=== PATIENT | female | born 1975 | race Caucasian/White ===

== ENCOUNTER 2019-09-22 10:00 | Inpatient (IN) | payer MEDICAID ==
[~2019-09-22] VITALS: Ht 160 cm; Wt 108.9 kg
--- NOTE | 2019-09-22 10:13 | NUR ---
MD CORTEZ AT BEDSIDE FOR MSE
--- NOTE | 2019-09-22 10:20 | NUR ---
PT PRESENTS TO ED WITH C/O WOUND TO INTERIOR L CALF. PT STATES THAT SHE HAS HAD THIS WOUND FOR 2 MONTHS AND SEEN HER PCP AND A VASCULAR SURGEON FOR THIS. PT STATES THEY MOSTLY HAVE DONE NOTHING FOR IT EXCEPT ULTRASOUND AND MONITORING. PT HAS OPEN WOUND ABOVE L ANKLE WITH YELLOW DRAINAGE AND HOT TO THE TOUCH CIRCUMFRENTIAL TO THE WOUND. WOUND APPROX 6X6CM , NO DEPTH VISIBLE, IN CIRCULAR SHAPE. PT APPEARS DISTRESSED ABOUT WOUND. PT ABLE TO AMBULATE WITH STEADY GAIT PT DENIES FEVER/ FLU LIKE SXS, JUST REPORTS PAIN. PT AXO X 4. PT SP[EAKING IN CLEAR AND FULL SENTENCES. MD CORTEZ AT BEDSIDE FOR TRANSLATION. AWAITING NEW ORDERS AT THIS TIME
--- NOTE | 2019-09-22 10:32 | NUR ---
XRAY AT BEDSIDE.
--- NOTE | 2019-09-22 10:32 | NUR ---
LAB AT BEDSIDE.
--- NOTE | 2019-09-22 10:32 | NUR ---
LAB AT BEDSIDE. IV ABX NOT STARTED UNTIL BLOOD CULTURE COLLECTED
[2019-09-22 10:54] LABS: CALCIUM 8.5 mg/dL (8.5-10.1); CARBON DIOXIDE 28.6 mmol/L (21-32); CHLORIDE SERUM 104 mmol/L (98-107); CREATININE SERUM 0.6 mg/dL (0.6-1.0); GFR1 > 60 mL/min; GLUCOSE SERUM 94 mg/dL (74-106); POTASSIUM SERUM 3.8 mmol/L (3.5-5.1); SODIUM SERUM 140 mmol/L (136-145)
[2019-09-22 10:58] LABS: ALBUMIN 3.7 g/dL (3.4-5.0); ALKALINE PHOSPHATASE 84 U/L (46-116); ALT/SGPT 96 U/L (14-59); AST/SGOT 39 U/L (15-37); BILIRUBIN TOTAL 0.28 mg/dL (0.20-1.00); C REACTIVE PROTEIN 1.9 mg/dL (<=0.9); CHOLESTEROL 151 mg/dL (<200); TOTAL PROTEIN, SERUM 7.4 g/dL (6.4-8.2); TRIGLYCERIDES 97 mg/dL (<150)
[2019-09-22 11:01] LABS: CHOLESTEROL/HDL RATIO 4.6; HDL CHOLESTEROL 33 mg/dL (40-60)
--- NOTE | 2019-09-22 11:09 | NUR ---
ULTRASOUND AT BEDSIDE
[2019-09-22 11:18] LABS: BASOPHIL % 0.4 % (0-2); PLATELET COUNT 211 x10^3mcL (130-400)
[2019-09-22 11:48] LABS: ERYTHROCYTE SED RATE 21 mm/hr (0-20)
--- NOTE | 2019-09-22 13:38 | NUR ---
REPORT GIVEN TO SUHAIL MORALES. ALL QUESTIONS AND CONCERNS ADDRESSED AT THIS TIME
[2019-09-22 14:21] VITALS: BP 119/66
--- NOTE | 2019-09-22 14:24 | NUR ---
RECEIVED PT FROM ED VIA NESS. ORIENTED PT TO ROOM AND SURROUNDINGS. IV NOTED TO RFA PATENT AND INTACT. INSTRUCTED PT ON THE USE OF CALL LIGHT FOR ASSISTANCE. ENDORSED PT TO PRIMARY NURSE CARMEN
[2019-09-22 17:49] VITALS: BP 120/62
--- NOTE | 2019-09-22 19:32 | NUR ---
PT RECIEVED AAO REG RESP NO SOB V/S STABLE,PT WITH FAMILY AT THE BEDSIDE,IV INFUSING WELL WITH THE SITE PATENT AND INTACT DRESSING TO THE LT KNEE INTACT PULSES ARE PALPABLE IN ALL EXTRE,BED IN THE LOW POSITION AND LOCKED,PT BEING ENCOURAGE TO AMBULATE,CALL LIGHT EASY REACHED AND WILL CONTINUE TO MONITOR.
[2019-09-22 21:56] VITALS: BP 111/61
[2019-09-22 22:11] VITALS: Ht 160 cm; Wt 108.9 kg
[2019-09-23 06:10] VITALS: BP 110/61
[2019-09-23 06:21] LABS: BASOPHIL % 0.6 % (0-2); PLATELET COUNT 182 x10^3mcL (130-400); RED CELL DISTRIBUTION WIDTH 13.1 % (11.5-14.5)
--- NOTE | 2019-09-23 06:41 | NUR ---
PT HAD A RESTING NIGHT NO CHANGE AT THIS TIME AND WILL CONTINUE TO MONITOR.
--- NOTE | 2019-09-23 07:30 | NUR ---
PT IS AAOX4. NORMSL S1S2 NOTED. RESP EVEN AND UNLABORED. NO DISTRESS NOTED. PT HAS LLE TRACE EDEMA WITH WOUND AND CELLULITUS COVERED WITH CDI 4X4s AND KERLIX. ELEVATED ON PILLOW. IVF RUNNING TO RFA. SITE WNL. NO S/S OF INFECTION OR INFILTRATION. PT DENIES PAIN AT THIS TIME. CALL LIGHT WITHIN REACH. BED IN LOWEST POSITION.
--- NOTE | 2019-09-23 08:15 | NUR ---
MARK NAGY NP MET WITH PT AND DISCUSSED POC. REPORTED TO TIERNEY THAT PT IS HAS VOMITED 300CC OF CLEAR GREEN FLUID. MARK STATED PT WILL HAVE A SCAN TO R/O OSTEOMYELITIS AND A MEDICATION TO DECREASE ACID IN THE PT STOMACH WILL BE PRESCRIBED. PT AGREED WITH POC.
[2019-09-23 08:19] LABS: CALCIUM 8.1 mg/dL (8.5-10.1); CARBON DIOXIDE 29.2 mmol/L (21-32); CHLORIDE SERUM 105 mmol/L (98-107); CREATININE SERUM 0.5 mg/dL (0.6-1.0); GFR1 > 60 mL/min; GLUCOSE SERUM 104 mg/dL (74-106); POTASSIUM SERUM 4.2 mmol/L (3.5-5.1); SODIUM SERUM 141 mmol/L (136-145)
[2019-09-23 09:01] VITALS: BP 105/56
--- NOTE | 2019-09-23 09:15 | NUR ---
SCHEDULED MEDS GIVEN AND TOLERATED WELL. LLE ELEVATED ON PILLOW. RESP EVEN AND UNLABORED. NO DISTRESS NOTED. PT DENIES PAIN AT THIS TIME. CALL LIGHT WITHIN REACH.
--- NOTE | 2019-09-23 12:54 | NUR ---
NORCO 5/325MG PO GIVEN FOR LLE PAIN. LLE ELEVATED. PT REPOSTIONED FOR COMFORT. EXTRA FLUIDS GIVEN AND ENCOURAGED. SCHEDULED MED GIVEN AND TOLERATED WELL. RESP EVEN AND UNLABORED. NO DISTRESS NOTED. CALL LIGHT WITHIN REACH.
--- NOTE | 2019-09-23 15:42 | NUR ---
RECEIVED ORDER FOR WOUND CARE FROM MARK NAGY RN. CLEANSE WOUND WITH SOAP AND N/S, PAT DRY, APPLY ADAPTIC AND KERLIX. ELEVATE EXTREMITY ON PILLOW. ORDERS NOTED AND CARRIED OUT. PT TOLERATED PROCEDURE WELL. CALL LIGHT WITHIN REACH. BED IN LOWEST POSTION.
--- NOTE | 2019-09-23 15:48 | NUR ---
REPORTED TO DEEJAY PHARMACIST THAT PT'S VANCO TROUGH IS 4.0. DEEJAY STATED HOLD VANCO AND HE WILL REMIX IT.
[2019-09-23 16:01] VITALS: BP 112/55
--- NOTE | 2019-09-23 18:12 | NUR ---
NORCO PO GIVEN FOR LLE PULSING PAIN 04/17. EXTRA FLUIDS GIVEN AND ENCOURAGED. SCHEDULED MED GIVEN AND TOLERATED WELL. PT REPOSTIONED FOR COMFORT. CALL LIGHT WITHIN REACH. FAMILY AT BEDSIDE.
--- NOTE | 2019-09-23 18:25 | NUR ---
PT IS AAOX4. RESP EVEN AND UNLABORED. IVF RUNNING TO RFA, SITE WNL. NO S/S OF INFECTION OR INFILTRATION. PT HAS LLE WOUND REINFORCED WITH DRESSING AND ELEVATED ON PILLOW. PT DENIES PAIN AT THIS TIME. WILL ENDORSE PT TO DANIEL MORALES.
--- NOTE | 2019-09-23 19:20 | NUR ---
RECEIVED REPORT FROM DAY SHIFT NURSE, SHELLY MORALES. PT IS AAOX4. NIGERIAN SPEAKING. DENIES CASTLE. DENIES CP. PULSES ARE PALPABLE, SWELLING NOTED TO LLE. ELEVATED ON PILLOW. BREATHING IS EVEN AND UNLABORED ON RA. LUNG SOUNDS CTA. NO SIGNS OF RESP. DISTRESS. ABD IS ROUND AND SOFT, BS ACTIVE IN ALL 4Q. VOIDS FREELY. AMBULATORY. LLE WOUND, ADAPTIC DRSG APPLIED - CDI. PT IS C/O 8/10 PAIN, PAIN MEDICATION IS NOT DUE YET. OFFERED COLD COMPRESSES, BUT PT REFUSED AND STATED SHE WILL WAIT FOR THE PAIN MEDICATION. RFA RUNNING NS AT 50 CC/HR. FAMILY AT BEDSIDE. BED IN LOWEST POSITION. CALL LIGHT WITHIN REACH. WILL CONTINUE TO MONITOR.
[2019-09-23 20:35] VITALS: BP 116/60
--- NOTE | 2019-09-23 21:00 | NUR ---
PT IS RESTING COMFORTABLY IN BED, WATCHING TV. FAMILY AT BEDSIDE. PT DENIES PAIN AT THIS MOMENT, STATES SHE IT FEELS BETTER. BREATHING IS EVEN AND UNLABORED ON RA. NO SIGNS OF RESP. DISTRESS. BED IN LOWEST POSITION. CALL LIGHT WITHIN REACH. WILL CONTINUE TO MONITOR.
--- NOTE | 2019-09-24 00:05 | NUR ---
ROUTINE MEDICATIONS GIVEN AND TOLERATED WELL. NO ACUTE DISTRESS NOTED. PT IS C/O 8/10 PAIN ON LEFT LOWER LEG. MEDICATED WITH NORCO PRN PER JAN ORDER. WILL REASSESS FOR EFFECTIVENESS. BREATHING IS EVEN AND UNLABORED ON RA. NO SIGNS OF RESP. DISTRESS. BED IN LOWEST POSITION. CALL LIGHT WITHIN REACH. SIDE RAILS UP X2. WILL CONTINUE TO MONITOR.
--- NOTE | 2019-09-24 02:15 | NUR ---
PT IS RESTING COMFORTABLY IN BED WITH EYES CLOSED, NO ACUTE DISTRESS NOTED. DRSG CDI - NO DRAINAGE NOTED. BED IN LOWEST POSITION. CALL LIGHT WITHIN REACH. WILL CONTINUE TO MONITOR.
--- NOTE | 2019-09-24 04:53 | NUR ---
PT SLEPT IN LONG INTERVALS THROUGHOUT THE NIGHT AND COMPLIED WITH NURSING CARE WITH NO ACUTE EVENTS OCCURRING DURING SHIFT. COMFORT AND SAFETY MEASURES MAINTAINED. PAIN MANAGEMENT MAINTAINED. ALL NEEDS ASSESSED AND ATTENDED TO. WILL CONTINUE TO MONITOR AND ENDORSE CARE TO DAY SHIFT NURSE.
[2019-09-24 05:49] VITALS: BP 119/55
--- NOTE | 2019-09-24 07:30 | NUR ---
PT IS AAOX4. LUNG SOUNDS CTA. NORMAL S1S2 NOTED. PT DENIES N/V/D AND CONSTIPATION. PT HAS WOUND WITH TRACE EDEMA TO LLE, COVERED WITH ADAPTIC DRESSING AND KERLIX. CDI. ELEVATED ON PILLOW. IVF RUNNING TO RFA, SITE WNL. NO S/S OF INFECTION OR INFILTRATION. CALL LIGHT WITHIN REACH. BED IN LOWEST POSITION.
[2019-09-24 08:50] VITALS: BP 117/57
--- NOTE | 2019-09-24 09:11 | NUR ---
Nutrition Note-Initial screening Received wound care consult on 09/22/19. Further chart review noted with no P/U at this time, and pt. does not meet high risk category. Good appetite and PO intake noted with documented PO 90-100% x 2 meals. Will be seen as moderate risk with initial assessment due 09/25-09/27. Consult RD PRN if condition has changed.
--- NOTE | 2019-09-24 09:16 | NUR ---
SCHEDULED MEDS GIVEN AND TOLERATED WELL. PT LLE ELEVATED ON PILLOW. PT DENIES PAIN AND DISCOMFORT. RESP EVEN AND UNLABORED. NO DISTRESS NOTED. CALL LIGHT WITHIN REACH. PT GIVEN TEACHING ON ZINC AND VIT C FOR WOUND HEALING. PT VERBALIZED UNDERSTANDING.
--- NOTE | 2019-09-24 11:44 | NUR ---
NORCO 5/325MG PO GIVEN FOR LLE PAIN 04/17. EXTRA FLUIDS GIVEN AND ENCOURAGED. PT EDUCATED TO INCREASE ACTIVITY. SCHEDULED MED GIVEN AND TOLERATED WELL. PT STATED SHE WILL SIT UP IN CHAIR FOR LUNCH. RESP EVEN AND UNLABORED. NO DISTRESS NOTED. CALL LIGHT WITHIN REACH.
[2019-09-24 15:09] LABS: BASOPHIL % 0.5 % (0-2); CALCIUM 8.3 mg/dL (8.5-10.1); CARBON DIOXIDE 28.8 mmol/L (21-32); CHLORIDE SERUM 105 mmol/L (98-107); CREATININE SERUM 0.6 mg/dL (0.6-1.0); GFR1 > 60 mL/min; GLUCOSE SERUM 119 mg/dL (74-106); PLATELET COUNT 176 x10^3mcL (130-400); POTASSIUM SERUM 3.6 mmol/L (3.5-5.1); RED CELL DISTRIBUTION WIDTH 13.3 % (11.5-14.5); SODIUM SERUM 140 mmol/L (136-145)
--- NOTE | 2019-09-24 15:25 | NUR ---
TORADOL IVP GIVEN FOR THROBBING LLE PAIN 04/17. PT ASSISTED WITH BED BATH AND GOWN CHANGE. DRESSING REMOVED FROM LLE, WOUND CLEANSED WITH N/S, PATTED DRY, AND ADAPTIC 4X4 AND KERLIX APPLIED. PT TOLERATED PROCEDURE WELL. RESP EVEN AND UNLABORED. NO DISTRESS NOTED. LLE ELEVATED ON PILLOW. BED IN LOWEST POSTION. CALL LIGHT WITHIN REACH.
--- NOTE | 2019-09-24 15:34 | NUR ---
REPORTED TO DEEJAY PHARMACIST THAT VANCO TROUGH IS 12.7. DEEJAY STATED, PLEASE CONTINUE WITH PRESENT VANCO DOSING.
--- NOTE | 2019-09-24 15:45 | NUR ---
SCHEDULED MED GIVEN AND TOLERATED WELL. PT STATES LLE PAIN HAS IMPROVED. RESP EVEN AND UNLABORED. LLE ELEVATED ON PILLOW. CALL LIGHT WITHIN REACH. FAMILY AT BEDSIDE VISITING.
[2019-09-24 16:50] VITALS: BP 127/62
--- NOTE | 2019-09-24 17:53 | NUR ---
NORCO PO GIVEN FOR THROBBING LLE PAIN. EXTRA FLUIDS GIVEN. PT LLE ELEVATED ON PILLOW. PT REPOSITIONED FOR COMFORT. SCHEDULED MED GIVEN. CALL LIGHT WITHIN REACH.
--- NOTE | 2019-09-24 18:41 | NUR ---
PT IS AAOX4. RESP EVEN AND UNLABORED. PT DENIES LLE PAIN AT THIS TIME. LLE ELEVATED ON PILLOW. RFA IV CATH FELL OUT. SITE WNL. COVERED WITH GAUZE AND BANDAID. NEW IV CATH 22G STARTED ON 3RD ATTEMPT TO LW. SITE WNL. COVERED WITH CDI OCCLUSIVE DRESSING. PT TOLERATED PROCEDURE WELL. IVF NOW RUNNING TO IV CATH IN . NO S/S OF INFILTRATION NOTED. PT HAS LLE WOUND COVERED WITH CDI DRESSING, NO S/S OF DRAINAGE NOTED. BED IN LOWEST POSITION. CALL LIGHT WITHIN REACH. WILL ENDORSE ALL CARE TO NOC RN.
--- NOTE | 2019-09-24 19:10 | NUR ---
RECEIVED PT SITTING UP IN BED EATING DINNER, NO ACUTE DISTRESS OBSERVED, DENIES PAIN OR DISCOMFORT. DARK PURPLE AND YELLOW DISCOLORATION TO LLE WITH DRESSING IN PLACE, CDI. LLE ELEVATED ONTO PILLOW. MILD WEAKNESS TO LLE, AMBULATORY AND ABLE TO REPOSITION SELF IN BED. AA/OX4, MED-SURG, NO TELE, NO CP. PULSES PALPABLE AND EQUAL THROUGHOUT, SWELLING TO LLE. BREATHING ON RA, EVEN AND UNLABORED, NO SOB OR DYSPNEA OBSERVED. ABD ROUND AND SOFT, NONTENDER, NO N/V/D. VOIDS URINE FREELY WITH BRP. IV TO LH IN PLACE, DRY, PATENT, INTACT, AND INFUSING IVF WELL, NO S&S PHLEBITIS OR INFILTRATION NOTED. COMFORT AND SAFETY MEASURES IN PLACE. ALL NEEDS ASSESSED AND ATTENDED TO. CALL LIGHT WITHIN REACH. WILL CONTINUE TO MONITOR
[2019-09-24 20:45] VITALS: BP 117/62
--- NOTE | 2019-09-25 05:12 | NUR ---
NO SIGNIFICANT CHANGES TO REPORT, PT COMPLIED WITH NURSING CARE THROUGHOUT THE SHIFT WITH NO ACUTE EVENTS. NO ACUTE DISTRESS OBSERVED AT THIS TIME, PT LAYING IN BED, BREATHING EVEN AND UNLABORED. COMFORT AND SAFETY MEASURES MAINTAINED. ALL NEEDS ASSESSED AND ATTENDED TO. CALL LIGHT WITHIN REACH. WILL CONTINUE TO MONITOR AND ENDORSE CARE TO DAY SHIFT NURSE
[2019-09-25 05:39] VITALS: BP 119/64
[2019-09-25 06:22] LABS: CALCIUM 8.3 mg/dL (8.5-10.1); CARBON DIOXIDE 27.9 mmol/L (21-32); CHLORIDE SERUM 106 mmol/L (98-107); CREATININE SERUM 0.6 mg/dL (0.6-1.0); GFR1 > 60 mL/min; GLUCOSE SERUM 81 mg/dL (74-106); POTASSIUM SERUM 3.8 mmol/L (3.5-5.1); SODIUM SERUM 141 mmol/L (136-145)
[2019-09-25 06:52] LABS: BASOPHIL % 0.6 % (0-2); PLATELET COUNT 170 x10^3mcL (130-400); RED CELL DISTRIBUTION WIDTH 13.3 % (11.5-14.5)
--- NOTE | 2019-09-25 08:00 | NUR ---
Report received from shift production supervisor RN. Patient found in bed. Alert and oriented x 4. Georgian speaking. No signs of distress indicated. Respiration even and unlabored. No signs of pain. Patient has LLE Cellulitis. Minimal drainage indicated. Will continue to monitor. Call light within reach.
[2019-09-25 08:42] VITALS: BP 123/65
[2019-09-25] MEDS ORDERED: CLEOCIN HCL150 MG PO (09:16)
[2019-09-25 11:27] VITALS: BP 130/65
--- NOTE | 2019-09-25 13:30 | NUR ---
PATIENT AWARE OF BEING DISCHARGED. DISCHARGE PAPERWORK PREPARED AND GIVEN TO PATIENT FOR SIGNATURES. WOUND PHOTOGRAPH OF LLE ANKLE CELLULITUS TAKEN FOR PATIENT. PATIENT ABLE TO AMBULATE WITH ASSIST. IV REMOVED FROM PATIENT. NO S/S OF BLEEDING, DRAINAGE, OR INFILTRATION NOTED. BROTHER AT BEDSIDE TO TAKE PATIENT HOME. WHEELCHAIR USED TO TAKE PATIENT TO CAR. NO SIGNS OF DISTRESS INDICATED.
--- NOTE | 2019-09-25 16:26 | NUR ---
Discount pharmacy card and list to low cost medical clinics given to patient by Kane Landin.
--- NOTE | 2019-09-26 08:12 | NUR ---
WOUND CARED CONSULT NOT DONE, PT. DISCHARGED.
== END 2019-09-25 13:45 | disposition home or self-care (01) | DRG 384 ==
LOC: ED 10:00 → MU 13:00
PROVIDERS: Specialist; ADMIT Internal Medicine
DX: S81.802S Unspecified open wound, left lower leg, sequela (principal); L03.116 Cellulitis of left lower limb; I83.92 Asymptomatic varicose veins of left lower extremity; E66.9 Obesity, unspecified; Z90.49 Acquired absence of other specified parts of digestive tract; X58.XXXS Exposure to other specified factors, sequela
CPT/HCPCS: 90658; G0378; J1885; J2543; J3370; J3490; J7030; Q0092

== ENCOUNTER 2019-11-23 08:45 | Emergency (ER) | payer OTHER, MEDICAID ==
[~2019-11-23] VITALS: Ht 167.6 cm; Wt 117.0 kg
[~2019-11-23 08:45] MED LIST: CLEOCIN HCL150 MG PO
[2019-11-23 08:49] VITALS: Ht 167.6 cm; Wt 117.0 kg
[2019-11-23 11:44] VITALS: BP 126/69
== END 2019-11-23 11:44 | disposition home or self-care (01) ==
LOC: ED 08:45
DX: S20.212A Contusion of left front wall of thorax, initial encounter (principal); S50.12XA Contusion of left forearm, initial encounter; V49.9XXA Car occupant (driver) (passenger) injured in unspecified traffic accident, initial encounter; Y93.89 Activity, other specified; Y92.89 Other specified places as the place of occurrence of the external cause; Y99.8 Other external cause status
CPT/HCPCS: J1885; Q0092

== ENCOUNTER 2019-12-04 13:56 | Emergency (ER) | payer OTHER, MEDICAID ==
[~2019-12-04] VITALS: Ht 165.1 cm; Wt 117.9 kg
[2019-12-04 14:23] VITALS: Ht 165.1 cm; Wt 117.9 kg
[2019-12-04 18:02] VITALS: BP 158/92
== END 2019-12-04 18:02 | disposition home or self-care (01) ==
LOC: ED 13:56
DX: R07.89 Other chest pain (principal); E66.9 Obesity, unspecified; S20.01XD Contusion of right breast, subsequent encounter; S20.02XD Contusion of left breast, subsequent encounter; Z68.41 Body mass index [BMI] 40.0-44.9, adult; Z90.89 Acquired absence of other organs; Z98.890 Other specified postprocedural states; V43.52XA Car driver injured in collision with other type car in traffic accident, initial encounter; Y93.I9 Activity, other involving external motion; Y92.488 Other paved roadways as the place of occurrence of the external cause; Y99.8 Other external cause status

== ENCOUNTER 2020-05-06 07:07 | Emergency (ER) | payer MEDICAID ==
[~2020-05-06] VITALS: Ht 157.5 cm; Wt 118.8 kg
[2020-05-06 07:21] VITALS: Ht 157.5 cm; Wt 118.8 kg
[2020-05-06 07:32] VITALS: BP 128/65
== END 2020-05-06 08:14 | disposition home or self-care (01) ==
LOC: ED 07:07
DX: L03.116 Cellulitis of left lower limb (principal); I87.8 Other specified disorders of veins; I83.92 Asymptomatic varicose veins of left lower extremity; Z98.890 Other specified postprocedural states; Z90.89 Acquired absence of other organs
CPT/HCPCS: J0696; J1885

== ENCOUNTER 2020-05-08 05:05 | Emergency (ER) | payer MEDICAID ==
[~2020-05-08] VITALS: Ht 162.6 cm; Wt 119.0 kg
[2020-05-08 05:13] VITALS: Ht 162.6 cm; Wt 119.0 kg
[2020-05-08 06:00] VITALS: BP 166/56
== END 2020-05-08 05:49 | disposition home or self-care (01) ==
LOC: ED 05:05
DX: L03.116 Cellulitis of left lower limb (principal); Z90.49 Acquired absence of other specified parts of digestive tract